=== PATIENT | male | born 1980 | race Caucasian/White ===

== ENCOUNTER 2022-04-05 19:46 | Emergency (ER) | payer SELFPAY ==
[~2022-04-05] VITALS: Ht 180.3 cm; Wt 74.0 kg
[2022-04-05 20:00] VITALS: BP 138/91
[2022-04-05 23:12] LABS: BASOPHILS % 0.2 % (0.0-2.0); EOSINOPHILS % 1.4 % (0.0-5.0); HEMATOCRIT. 37.1 % (42.0-52.0); HEMOGLOBIN. 12.1 g/dL (14.0-18.0); LYMPHOCYTES % 21.9 % (20.0-50.0); MEAN CORPUSCULAR HEMOGLOBIN 25.7 pg (28.0-32.0); MEAN CORPUSCULAR VOLUME 78.9 fL (80.0-94.0); MEAN PLATELET VOLUME 6.6 fl (7.4-10.4); MONOCYTES % 6.9 % (2.0-8.0); NEUTROPHILS % 69.6 % (40.0-76.0); PLATELET 452 x1000/uL (130-400); RED CELL DISTRIBUTION WIDTH 14.4 % (11.6-14.6)
[2022-04-05 23:18] LABS: CHLORIDE 104 mEq/L (98-107)
[2022-04-06] MEDS ORDERED: KETOROLAC 30MG/ML VIAL IM ONE
[2022-04-06 00:40] LABS: CLARITY URINE CLOUDY (CLEAR); COLOR URINE YELLOW (YELLOW); KETONES URINE TRACE (NEGATIVE); LEUKOCYTE ESTERASE URINE 2+ (NEGATIVE); NITRITE URINE NEGATIVE (NEGATIVE); OCCULT BLOOD URINE TRACE (NEGATIVE); PROTEIN URINE 1+ (NEGATIVE); SPECIFIC GRAVITY URINE 1.029 (1.005-1.030)
[2022-04-06] MEDS ORDERED: CEFTRIAXONE SODIUM 500 MG/VIAL IM ONE (01:00)
[2022-04-06] MEDS ORDERED: DOXYCYCLINE HYCLATE 100MG CAPSULE PO ONE (01:00)
[2022-04-06] MEDS ORDERED: IBUP-2029 MT (01:24)
[2022-04-06] MEDS ORDERED: DOXY-326 MT (01:24)
== END 2022-04-06 02:10 | disposition home or self-care (01) ==
LOC: ER 19:46
DX: N39.0 Urinary tract infection, site not specified (principal)
CPT/HCPCS: 36415; 74176; 76870; 80053; 81003; 83690; 85025; 87086; 93976; 96372; 99285; J0696; J1885